=== PATIENT | female | born 2005 | race African-American/Black ===

== ENCOUNTER 2024-08-28 20:12 | Emergency (ER) | payer OTHER ==
[2024-08-28 21:33] LABS: SARS-CoV-2 Antigen Rapid Res Negative (Negative)
--- NOTE | 2024-08-28 21:46 | ER ---
Nurse's Notes [facility] Name: Leah Womack Age: 19 yrs Sex: Female : 2005 Arrival Date: 08/28/2024 Time: 20:12 Bed IW4 Private MD: Diagnosis: Cough;Acute upper respiratory infection, unspecified Presentation: 08/28 21:04 Chief complaint: Patient states: cough and congestion since yesterday. also states she al5 just found out last week she is and wants to make sure the baby is okay. Coronavirus screen: At this time, the client does not indicate any symptoms associated with coronavirus-19. Ebola Screen: No symptoms or risks identified at this time. Resp Distress? No respiratory distress is noted at this time. Initial Sepsis Screen: Does the patient meet any 2 criteria? HR > 90 bpm. No. Patient's initial sepsis screen is negative. Does the patient have a suspected source of infection? No. Patient's initial sepsis screen is negative. Risk Assessment: Do you want to hurt yourself or someone else? Patient reports no desire to harm self or others. 21:04 Method Of Arrival: Ambulatory al5 21:04 Acuity: [place] 4 al5 Triage Assessment: 21:07 General: Appears in no apparent distress. comfortable, Behavior is calm, cooperative. al5 Pain: Denies pain. EENT: No signs and/or symptoms were reported regarding the EENT system. Neuro: Level of Consciousness is awake, alert, obeys commands, Oriented to person, place, time, situation. Cardiovascular: Capillary refill < 3 seconds Patient's skin is warm and dry. Respiratory: Airway is patent Respiratory effort is even, unlabored, Respiratory pattern is regular, symmetrical. GI: No signs and/or symptoms were reported involving the gastrointestinal system. : No signs and/or symptoms were reported regarding the genitourinary system. Derm: Skin is intact, is healthy with good turgor, Skin is pink, warm \T\ dry. normal. Musculoskeletal: No signs and/or symptoms reported regarding the musculoskeletal system. 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 - Infectious Disease History:: Denies. - Family history:: not pertinent. - Social history:: Smoking status: Patient denies any tobacco usage or history of. - Hospitalizations: : No recent hospitalization is reported. Screenin:08 [facility] ED Fall Risk Assessment (Adult) History of falling in the last 3 months, al5 including since admission No falls in past 3 months (0 pts) Confusion or Disorientation No (0 pts) Intoxicated or Sedated No (0 pts) Impaired Gait No (0 pts) Mobility Assist Device Used No (0 pt) Altered Elimination No (0 pt) Score/Fall Risk Level 0 - 2 = Low Risk Oriented to surroundings, Maintained a safe environment, Hourly rounding (assess needs \T\ fall precautionary measures) done. Abuse screen: Denies threats or abuse. Denies injuries from another. Nutritional screening: No deficits noted. Tuberculosis screening: No symptoms or risk factors identified. Assessment: 21:08 Reassessment: see triage assessment. Cardiovascular: Capillary refill < 3 seconds al5 Patient's skin is warm and dry. Respiratory: Airway is patent Respiratory effort is even, unlabored, Respiratory pattern is regular, symmetrical. Vital Signs: 21:04 BP 126 / 81; Pulse 93; Resp 18; Temp 98.4; Pulse Ox 95% on R/A; Weight 81.65 kg; Height al5 5 ft. 0 in. ; 21:04 Body Mass Index 35.15 (81.65 kg, 152.4 cm) al5 ED Course: 20:19 Patient arrived in ED. [email or web address] 20:31 Obi Penaloza MD is Attending Physician. rn 21:05 Triage completed. al5 21:06 Arm band placed on right wrist. Patient placed in the treatment room, in view of staff al5 members, on pulse oximetry, Patient notified of wait time. 21:08 Patient has correct armband on for positive identification. Provided Education on: plan al5 of care. 21:08 No provider procedures requiring assistance completed. al5 21:23 Group A Streptococcus Rapid Sent. vk 21:23 SARS RAPID Sent. vk 21:52 Idania Angel, RN is Primary Nurse. al5 21:57 Patient did not have IV access during this emergency room visit. al5 Administered Medications: No medications were administered Medication: 21:08 VIS not applicable for this client. al5 Outcome: 21:46 Discharge ordered by . rn 21:57 Discharged to home ambulatory, with family, al5 21:57 Condition: good 21:57 Discharge instructions given to patient, Instructed on discharge instructions, follow up and referral plans. Demonstrated understanding of instructions, follow-up care, :57 Patient left the ED. al5 Signatures: Obi Penaloza MD MD rn Jeffries, Jennifer [id number] Kruse, Vivian vk Langhorst, Amanda, RN RN al5 Corrections: (The following items were deleted from the chart) 21:06 21:05 PSHx: None; al5 al5 21:39 21:06 Arm band placed on right wrist. Patient placed in the treatment room, in view of al5 staff members, on pulse oximetry, al5
--- NOTE | 2024-08-28 21:46 | EDPHYS ---
Physician Documentation [facility] Name: Leah Womack Age: 19 yrs Sex: Female : 2005 Arrival Date: 08/28/2024 Time: 20:12 Bed IW4 Private MD: ED Physician Obi Penaloza HPI: 08/28 20:55 This 19 yrs old Black or Female presents to ER via Unassigned with rn complaints of Cough, Congestion. 20:55 Patient reports her son who is 6 months old started with cough and nasal congestion a rn few days ago. Now she is sick with identical symptoms. Reports runny nose, cough and sore throat. No shortness of breath.. 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 - Infectious Disease History:: Denies. - Family history:: not pertinent. - Social history:: Smoking status: Patient denies any tobacco usage or history of. - Hospitalizations: : No recent hospitalization is reported. ROS: 20:55 Constitutional: Negative for fever, chills, and weight loss, ENT: Positive for runny rn nose and sore throat Cardiovascular: Negative for chest pain, palpitations, and edema, Respiratory: Positive for cough, negative for shortness of breath Abdomen/GI: Negative for abdominal pain, nausea, vomiting, diarrhea, and constipation, : Negative for injury, bleeding, discharge, and swelling, MS/Extremity: Negative for injury and deformity, Neuro: Negative for headache, weakness, numbness, tingling, and seizure, Exam: 20:55 Constitutional: This is a well developed, well nourished patient who is awake, alert, rn and in no acute distress. Head/Face: Normocephalic, atraumatic. ENT: Mild pharyngeal erythema, no exudate or lesions noted, moist mucous membranes Cardiovascular: Regular rate and rhythm. No pulse deficits. Respiratory: Speaking full sentences, unlabored. Skin: No cyanosis or lesions Neuro: Awake and alert, GCS 15 Vital Signs: 21:04 BP 126 / 81; Pulse 93; Resp 18; Temp 98.4; Pulse Ox 95% on R/A; Weight 81.65 kg; Height al5 5 ft. 0 in. ; 21:04 Body Mass Index 35.15 (81.65 kg, 152.4 cm) al5 MDM: 20:31 Medical Screening Exam initiated rn 21:45 Differential Diagnosis: Upper Respiratory Infection Pharyngitis Viral Syndrome. Data rn reviewed: vital signs, nurses notes, lab test result(s), and as a result, I will discharge patient. Counseling: I had a detailed discussion with the patient and/or guardian regarding the historical points, exam findings, and any diagnostic results supporting the discharge/admit diagnosis, lab results, the need for outpatient follow up, to return to the emergency department if symptoms worsen or persist or if there are any questions or concerns that arise at home. Special discussion: I discussed with the patient/guardian in detail that at this point there is no indication for admission to the hospital. It is understood, however, that if the symptoms persist or worsen the patient needs to return immediately for re-evaluation. ED course: Most likely viral infection. Patient is afebrile, no oxygen requirement. No indication for emergent chest x-ray or antibiotics at this time. Patient became ill shortly after her child with a viral illness. Will discharge home with PCP follow-up and return precautions.. 08/28 20:49 Order name: SARS RAPID; Complete Time: 21:43 rn 08/28 20:49 Order name: Group A Streptococcus Rapid; Complete Time: 21:30 rn 08/28 21:32 Order name: Throat Culture EDMS Administered Medications: No medications were administered Disposition Summary: 08/28/24 21:46 Discharge Ordered Notes: Location: Home rn Problem: new rn Symptoms: have improved rn Condition: Stable rn Diagnosis - Cough rn - Acute upper respiratory infection, unspecified rn Followup: rn - With: Private Physician - When: As needed - Reason: Recheck today's complaints, Re-evaluation by your physician Discharge Instructions: - Discharge Summary Sheet rn - Upper Respiratory Infection, Adult rn - Viral Respiratory Infection rn - Viral Illness, Adult rn Forms: - Medication Reconciliation Form rn - Antibiotic journeyman pressman - Prescription Opioid Use rn - Patient Portal Instructions rn - Leadership Thank You Letter rn Signatures: Dispatcher [facility] EDMS Obi Penaloza MD MD rn Langhorst, Amanda, RN RN al5 Corrections: (The following items were deleted from the chart) 20:50 20:50 SARS-COV-2 Antigen Rapid+I.LAB.BRZ ordered. EDMS EDMS 20:50 20:50 Group A Streptococcus Rapid Sc+I.LAB.BRZ ordered. EDMS EDMS 21:06 21:05 PSHx: None; al5 al5
[2024-08-28 22:11] VITALS: BP 126/81; TEMP 98.4; O2SAT 95
== END 2024-08-28 21:57 | disposition home or self-care (01) ==
LOC: ER 20:12
DX: J06.9 Acute upper respiratory infection, unspecified (principal); Z11.52 Encounter for screening for COVID-19
CPT/HCPCS: 36415; 87070; 87426